=== PATIENT | female | born 1965 | race African-American/Black ===

== ENCOUNTER 2021-03-31 01:23 | Emergency (ER) | payer OTHER, SELFPAY ==
--- NOTE | ~2021-03-31 | XR_ITS ---
EXAMINATION: XR chest 1V portable DATE: 03/31/2021 02:31 INDICATION: Cough. TECHNIQUE: A single frontal view of the chest was obtained. COMPARISON: Chest single view 04/24/2019, chest CT 10/06/2010 FINDINGS: The chest demonstrates clear lungs without pneumonia, pleural effusion, or pneumothorax. Th e heart size is normal. IMPRESSION: 1. No acute cardiopulmonary disease. Reviewed, dictated and finalized at location A.
[2021-03-31 01:31] VITALS: BP 130/79; PULSE 90; RESP 18; TEMP 36.1; O2SAT 100
--- NOTE | 2021-03-31 03:20 | ED.GENADULT ---
HPI - General Adult General Chief complaint: Upper Respiratory Infection Stated complaint: st, ear, headache Time Seen by Provider: 03/31/21 01:40 History of Present Illness HPI narrative: Patient is a 55-year-old female who presents ER with sore throat and cough. Ongoing for 3 days. Exposure to a sick child 1 week ago. Denies fevers or chills or sweats. Reports that her sore throat worsens when she lies down flat at night. She has had mild runny nose. No chest pain or chest pressure. No exertional dyspnea. Cough is nonproductive and is worse at night. Reports she believes a sick person she was exposed to had influenza. Related Data Allergies Allergy/AdvReac Type Severity Reaction Status Date / Time peanut Allergy Unknown THROAT Verified 07/23/18 21:01 SWELLING, STOPPED BREATHING Penicillins Allergy Unknown HIVES Verified 07/23/18 21:01 Review of Systems Constitutional: Constitutional: Denies chills and Denies fever(s) ENT: Reports sore throat Comments: Rhinorrhea Respiratory: Respiratory: Reports chest congestion, Reports cough and Denies dyspnea PMFSH Past Medical History Medical History (Updated 03/31/21 @ 03:23 by Jw Holland MD) Diabetes mellitus labor x3 Thyroid disease Surgical History Surgical History (Updated 08/19/20 @ 14:34 by Caty Frausto CMA) H/O prior ablation treatment H/O: hysterectomy Tubal ligation status [place] teeth extracted Social History Social History Smoking status: Never smoker Second hand tobacco smoke exposure: No Alcohol intake: never Exam Narrative: Exam Narrative: GENERAL: Well-appearing, well-nourished, and in no acute distress. HEAD: Normocephalic, atraumatic. ENT: Mucous membranes moist. Normal posterior oropharynx without tonsillar hypertrophy or exudate. Uvula midline nonedematous. NECK: Supple. CHEST: Clear to auscultation. No respiratory distress. HEART: Regular rate and rhythm. Normal peripheral pulses. NEURO: Alert and oriented x3. Course Course Emergency Course: You have fluid. Chest x-ray negative. Patient swabbed for Covid. Discussed self-isolation. Will provide work note. Vital Signs Vital signs: Vital Signs Temperature 97.0 F L 03/31/21 01:31 Pulse Rate 90 03/31/21 01:31 Respiratory Rate 18 03/31/21 01:31 Blood Pressure 130/79 03/31/21 01:31 Pulse Oximetry 100 03/31/21 01:31 Temperature 97.0 F L 03/31/21 01:31 Pulse Rate 90 03/31/21 01:31 Respiratory Rate 18 03/31/21 01:31 Blood Pressure 130/79 03/31/21 01:31 Pulse Oximetry 100 03/31/21 01:31 Medical Decision Making Vital Signs Vital Signs: Vital Signs Temperature 97.0 F L 03/31/21 01:31 Pulse Rate 90 03/31/21 01:31 Respiratory Rate 18 03/31/21 01:31 Blood Pressure 130/79 03/31/21 01:31 Pulse Oximetry 100 03/31/21 01:31 Temperature 97.0 F L 03/31/21 01:31 Pulse Rate 90 03/31/21 01:31 Respiratory Rate 18 03/31/21 01:31 Blood Pressure 130/79 03/31/21 01:31 Pulse Oximetry 100 03/31/21 01:31 Lab Data Labs: Influenza A Screen Negative Reference Range: Negative Influenza B Screen Negative Reference Range: Negative Imaging Data My impression: Chest x-ray: No acute cardiopulmonary process. Discharge Plan Discharge Clinical Impression: Upper respiratory infection Patient Disposition: Home, Self-Care Condition: Stable Instructions: Viral Syndrome (ED), COVID-19 (Coronavirus Disease 2019) (ED) Additional Instructions: You should self isolate at home until you receive either negative Covid test or you are cleared by the health department after a positive test. Your symptoms seem to be viral in nature. You do not need antibiotics. Your flu test was negative and you had a normal chest x-ray. Return the ER if you
[2021-03-31 03:58] VITALS: BP 128/77; PULSE 82; RESP 18; O2SAT 99
[2021-04-02 17:41] LABS: SARS-CoV-2 RNA PCR Negative
== END 2021-03-31 04:00 | disposition home or self-care (01) ==
PROVIDERS: Emergency Provider Emergency Medicine
DX: J06.9 Acute upper respiratory infection, unspecified (principal); Z20.822 Contact with and (suspected) exposure to COVID-19; E11.9 Type 2 diabetes mellitus without complications; E07.9 Disorder of thyroid, unspecified; Z79.4 Long term (current) use of insulin
CPT/HCPCS: 71045; 87804; 99283; C9803; U0003; U0005

== ENCOUNTER 2022-02-24 14:15 | Outpatient (RCR) | payer OTHER, SELFPAY | END 2022-04-01 13:40 | disposition home or self-care (01) | LOC: ANHDMC 14:15 | PROVIDERS: Visit Provider Nurse Practitioner Family | DX: E10.65 Type 1 diabetes mellitus with hyperglycemia (principal); Z71.89 Other specified counseling | CPT/HCPCS: G0108 ==

== ENCOUNTER 2022-04-14 09:16 | Outpatient (RCR) | payer OTHER, SELFPAY | END 2022-07-13 23:59 | disposition home or self-care (01) | LOC: ANHDMC 09:16 | PROVIDERS: Visit Provider Nurse Practitioner Family | DX: E10.65 Type 1 diabetes mellitus with hyperglycemia (principal); Z71.89 Other specified counseling | CPT/HCPCS: G0108 ==

== ENCOUNTER 2025-09-07 16:42 | Emergency (ER) | payer OTHER, SELFPAY ==
--- NOTE | 2025-09-07 16:44 | ED.URI ---
HPI - URI/Sore Throat General Chief Complaint: Upper Respiratory Infection Stated Complaint: EARACHE/SORE THROAT/HEADACHE Time Seen by Provider: 09/07/25 16:44 Source: patient Mode of arrival: ambulatory Limitations: no limitations History of Present Illness HPI Narrative: Patient is a 60-year-old female who presents with 1 week productive cough, headache, sore throat, right ear pain the continue to worsen. Denies any shortness of breath fever, chills, nausea, vomiting, diarrhea. Patient has tried [id number] medication with no relief. Related Data Allergies Allergy/AdvReac Type Severity Reaction Status Date / Time atorvastatin Allergy Intermediate myalgia Verified 09/07/25 16:57 peanut Allergy Unknown THROAT Verified 09/07/25 16:57 SWELLING, STOPPED BREATHING Penicillins Allergy Unknown HIVES Verified 09/07/25 16:57 Review of Systems Review of Systems: All systems reviewed & are unremarkable except as noted in HPI and below Constitutional: Constitutional: Denies chills, Denies fatigue, Denies fever(s), Reports headache(s), Denies malaise and Denies weakness Eyes: Eyes: Denies blurry vision, Denies itchy eyes and Denies loss of vision ENT: Reports otalgia, Reports headache(s), Reports nasal congestion, Denies sinus pain and Reports sore throat Cardiovascular: Cardiovascular: Denies chest pain, Denies irregular heart rhythm and Denies dyspnea Respiratory: Respiratory: Reports cough and Denies dyspnea Gastrointestinal: Gastrointestinal: Denies abdominal pain, Denies diarrhea, Denies nausea and Denies vomiting Musculoskeletal: Musculoskeletal: Denies back pain, Denies myalgias and Denies arthralgias Integumentary/Breasts: Skin/Breast: Denies pruritus and Denies rash Neurologic: Denies headache(s), Denies loss of vision and Denies weakness Psychiatric: Psychiatric: Reports no additional psychiatric complaints Endocrine: Endocrine: Denies fatigue Allergic/Immunologic: Allergic/Immunologic: Denies itchy eyes PMFSH Past Medical History Medical History Clogged artery (heart) Postmenopausal 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 There is no relevant family history pertinent to the presenting complaint. Exam Const: General: cooperative, healthy appearing, comfortable, no acute distress and well nourished Nutritional Appearance: well nourished Orientation/consciousness: patient oriented x3 Limitations: no limitations HENMT: Head: normal to inspection, normocephalic and atraumatic Ears: hearing grossly normal bilaterally, external ears normal, TM's normal bilaterally, EAC's normal and no periauricular adenopathy Face/Nose/Sinus: Normal external nose present, Abnormal mucous membranes and turbinates present erythematous bilateral and diffuse, normal facial exam, sinuses nontender and face symmetric Face and sinus: normal facial exam, sinuses nontender and face symmetric Mouth: Yes Normal oral and palatal mucosa present, Yes lip normal, Yes tongue normal, Yes Normal salivary glands and ducts present, Yes oropharynx normal and Yes moist mucous membranes Teeth and gingiva: dentition normal Throat: posterior oropharynx normal, tonsils normal, uvula midline and postnasal drainage Eyes: General: appearance normal, both eyes and all related structures Alignment and Position: alignment normal and position normal Periorbital: periorbital findings normal Eyelids: eyelids normal Pupils: Equal, round and reactive pupils present Neck: Neck: normal visual inspection, full ROM, no lymphadenopathy and supple Chest: Chest palpation & inspection: normal inspection of the chest and normal palpation of entire chest wall Resp: Effort & Inspection: normal respiratory effort, able to speak in complete sentences and Actively coughing productive Auscultation: clear to auscultation bilaterally, no crackles, no rales, no rhonchi and no wheezes Cardio: Rate: regular rate Rhythm: regular rhythm Heart sounds: S1 normal heart sound present and S2 normal heart sound present GI: Inspection: normal to inspection Skin: General skin exam: normal color and no rashes or lesions noted Neuro: General: patient oriented x3 and moves all extremities Cranial nerves: Yes Equal, round and reactive pupils present Speech: normal speech Gait exam (Neuro): Normal gait present Extrem: General: normal to inspection, full ROM and no edema Psych: Appearance: grossly normal and well kempt Mental Status: mental status grossly normal Speech and movement: Normal speech and movement present Affect: normal affect Attitude: cooperative Thought process: Normal thought process present Course Course Emergency Course: Discharge instructions reviewed with patient, as well as provided in writing per nursing staff. The instructions also include specific and strict return/GO TO THE ER as well as f/u information. All questions have been answered, and the patient deny any further questions with discharge and discharge plan. Portions of this record may have been created with voice recognition software Level of Care: Express Care Visit Vital Signs Vital signs: Vital Signs Pulse Oximetry 100 09/07/25 16:50 Oxygen Delivery Room Air 09/07/25 16:50 Temperature 36.3 C L 09/07/25 16:55 Pulse Rate 87 09/07/25 16:55 Respiratory Rate 16 09/07/25 16:55 Blood Pressure 136/78 09/07/25 16:55 Pulse Oximetry 100 09/07/25 16:55 Oxygen Delivery Room Air 09/07/25 16:50 Reviewed MDM - URI/Sore Throat MDM Narrative Medical decision making narrative: Pt well hydrated appearing, in no respiratory distress, hemodynamically stable. Recommend supportive care. The patient is stable at time of discharge the clinical impression was discussed and the patient was given the opportunity to ask questions, which were addressed as completely as possible given the information available at present. Anticipatory guidance and return to care precautions were discussed and the importance of primary care follow-up was stressed and encouraged. The patient voiced understanding of the plan, indications to return, and the need for follow-up. Exam findings show no acute concerns or changes Patient is appropriate for outpatient treatment and follow-up. Differential diagnosis considered: [place] virus, strep pharyngitis, allergic rhinitis, upper respiratory tract infection, sinusitis, rhinosinusitis, nasopharyngitis. viral pharyngitis, otitis media, otitis externa, otitis effusion, foreign body, cerumen impaction, viral syndrome, and influenza.? Medical Records Attestation: I reviewed the patient's medical records. Lab Data Attestation: I reviewed the patient's lab results. Labs: Lab Results 09/07/25 Range/Units 17:07 POC Grp A Strep Screen Negative (Negative) Discharge Plan Discharge Clinical Impression: Upper respiratory infection with cough and congestion, Pharyngitis Patient Disposition: Home Condition: Stable Instructions: Upper Respiratory Infection (ED) Additional Instructions: take antibiotics as prescribed, take steroids per package instructions Your rapid strep swab was negative today at [facility]. A throat culture will be sent to the laboratory for further testing. If the test is positive, you will receive a phone call within 48 hours and an appropriate antibiotic will be initiated at that time. Your symptoms are likely due to a viral illness, which is not treated with antibiotics. Viral symptoms can be present for up to a few weeks. -For pain/fever, you may take: Tylenol 650-1000mg by mouth every 4-6 hours. Do not exceed 4000mg in 24 hours. Advil (Ibuprofen) 600 mg by mouth every 6 hours. Do not exceed 2400mg in 24 hours. 8 AM: Tylenol 11 AM: Ibuprofen 2 PM: Tylenol 5 PM: Ibuprofen 8 PM: Tylenol 11 PM: Ibuprofen 2 AM: Tylenol 5 AM: Ibuprofen -Antihistamine medication such as Benadryl/Zyrtec at night and Claritin/Mame during the day can help improve symptoms. -Use Flonase twice a day for 5 days then daily to help reduce the inflammation and dry up your sinuses. -You can also use Sudafed behind the pharmacy counter(12 or 24 hour). Be sure to drink plenty of water with these medications at least 8 ounces with every dose and it is important to drink 8 to 10 glasses of water per day. Water is a natural decongestant -Eat and drink things that are easy to swallow, like tea or soup, or popsicles. -Oral rinses such as: Salt water gargles and/or may use topical anesthetic (eg. Chloraseptic spray) or lozenges to relieve dryness or throat pain). -Frequent hand washing or hand lead electrical controls engineer is one of the best ways to prevent spread of infection. -Using a vaporizer or humidifier at night will also help thin secretions and help with coughing up phlegm. Call your Primary Care Doctor and make a follow-up appointment in 3 days. If your cough worsens, you develop a fever greater than 103, you develop shaking chills, a fast heartbeat, trouble breathing and/or feel you are are breathing much faster than usual, call your Primary Care Doctor or go to the ER. Patient Language: Com[place]an Prescriptions: New methylprednisolone [Medrol (Edy)] 4 mg tablets,dose pack See Rx Instructions .ROUTE .COMPLEX Qty: 21 0RF Rx Instructions: orally per package directions cefdinir 300 mg capsule 300 mg PO Q12H 7 Days Qty: 14 0RF fluticasone propionate [Flonase Allergy Relief] 50 mcg/actuation spray,suspension 1 spray intranasal DAILY Qty: 16 0RF Rx Instructions: administer into each nostril No Action ezetimibe 10 mg tablet 10 mg PO DAILY Qty: 90 1RF cholecalciferol (vitamin D3) 1,250 mcg (50,000 unit) tablet 1,250 mcg PO WEEKLY Qty: 14 0RF rosuvastatin [Crestor] 40 mg tablet 40 mg PO DAILY Qty: 90 1RF (DME) FreeReissuedyle Venancio 3 Sensor Device See Rx Instructions .ROUTE .COMPLEX Qty: 6 1RF Dose Instruction: CHANGE SENSORS EVERY 14 DAYS Rx Instructions: CHANGE SENSORS EVERY 14 DAYS fluticasone propionate [Flonase Allergy Relief] 50 mcg/actuation spray,suspension 1 spray intranasal DAILY Qty: 16 0RF Rx Instructions: administer into each nostril acyclovir 5 % ointment 1 applic TOPICAL 6XD 7 Days Qty: 15 1RF (DME) OneTouch Ultra Test Strip See Rx Instructions .Route Qty: 100 0RF Rx Instructions: As directed (DME) Keto-Diastix Strip See Rx Instructions .Route Qty: 50 0RF Rx Instructions: As directed Humalog U-100 Insulin 100 unit/mL cartridge See Rx Instructions .ROUTE .COMPLEX Qty: 18 1RF Dose Instruction: INJECT UP TO 60 UNITS UNDER THE SKIN DAILY DIRECTED Rx Instructions: INJECT UP TO 60 UNITS UNDER THE SKIN DAILY DIRECTED Tresiba FlexTouch U-100 100 unit/mL (3 mL) insulin pen 18 unit subcut DAILY 90 Days Qty: 18 1RF (DME) InPen (for Humalog) [place] Insulin Pen See Rx Instructions .ROUTE .COMPLEX Qty: 1 0RF Dose Instruction: USE DIRECTED Rx Instructions: USE DIRECTED Follow-up/Referrals: Camacho,Kieran [Other] - 3 Days Time of Disposition: 17:30
[2025-09-07 16:50] VITALS: O2SAT 100
[2025-09-07 16:55] VITALS: BP 136/78; PULSE 87; RESP 16; TEMP 36.3; O2SAT 100
[2025-09-07 17:08] LABS: EDSTREPNEGPOS1 Negative (Negative)
== END 2025-09-07 17:39 | disposition home or self-care (01) ==
PROVIDERS: Emergency Provider Nurse Practitioner Family
DX: J06.9 Acute upper respiratory infection, unspecified (principal); R05.9 Cough, unspecified; J02.9 Acute pharyngitis, unspecified; E10.9 Type 1 diabetes mellitus without complications; Z79.4 Long term (current) use of insulin; E78.5 Hyperlipidemia, unspecified; M19.90 Unspecified osteoarthritis, unspecified site; E07.9 Disorder of thyroid, unspecified; I25.10 Atherosclerotic heart disease of native coronary artery without angina pectoris
CPT/HCPCS: 87081; 87880; 99213; G0463